=== PATIENT | female | born 1985 | race Caucasian/White ===

== ENCOUNTER 2019-02-19 20:50 | Emergency (ER) | payer OTHER ==
[2019-02-19] MEDS ORDERED: Glucagon,Human Recombinant 1 MG Vial IVPUSH ONE (21:05)
[2019-02-19] MEDS ORDERED: Metoclopramide 10 MG/2 ML SDV IVPUSH ONE (21:07)
[2019-02-19] MEDS ORDERED: fentaNYL 100 MCG/2 ML SDV IVPUSH ONE (21:07)
[2019-02-19] MEDS ORDERED: Sodium Chloride 0.9% 10 ML Syringe FLUSH PRN (21:07)
--- NOTE | 2019-02-19 21:14 | EDM.PDOC ---
ED HPI GENERAL MEDICAL PROBLEM - General Chief Complaint: ENT Problem Stated Complaint: STEAK STUCK IN THROAT Time Seen by Provider: 02/19/19 21:01 Source of Information: Reports: Patient, RN Notes Reviewed History Limitations: Reports: No Limitations - History of Present Illness INITIAL COMMENTS - FREE TEXT/NARRATIVE: Patient is a 33-year-old female who presents to the ED for evaluation of a food impaction bolus. The patient states that she has had a piece of steak stuck in her throat for roughly 30-45 minutes. She has been trying to drink water, however she is up and able to keep this down. She is just spitting up clear frothy saliva at this time. She notes that she has had prior issues with this in the past. She has had to have esophageal dilatation. She notes that she has not had this done and roughly 4 years however. She states that this food impaction bolus happens a couple times a year. Throat Pain Score (Numeric/FACES): 5 - Related Data Allergies Allergy/AdvReac Type Severity Reaction Status Date / Time amoxicillin Allergy Cannot Verified 02/19/19 20:59 Remember Home Meds: Home Meds Mirabegron [Myrbetriq] 1 tab PO DAILY 02/19/19 [History] Mometasone Furoate [Asmanex 220 MCG] 1 puff INH DAILY 02/19/19 [History] Montelukast [Singulair] 10 mg PO DAILY 02/19/19 [History] Past Medical History HEENT History: Reports: Other (See Below) Other HEENT History: esophagitis Respiratory History: Reports: Asthma Social & Family History - Tobacco Use Smoking Status *Q: Never Smoker - Caffeine Use Caffeine Use: Reports: Coffee, Tea - Recreational Drug Use Recreational Drug Use: No ED ROS ENT - Review of Systems Review Of Systems: See Below Constitutional: Reports: No Symptoms HEENT: Reports: Throat Pain (food impaction bolus, mid throat/chest discomfort) Respiratory: Reports: No Symptoms Cardiovascular: Reports: No Symptoms Endocrine: Reports: No Symptoms GI/Abdominal: Reports: Nausea : Reports: No Symptoms Musculoskeletal: Reports: No Symptoms Skin: Reports: No Symptoms Neurological: Reports: No Symptoms Psychiatric: Reports: No Symptoms Hematologic/Lymphatic: Reports: No Symptoms Immunologic: Reports: No Symptoms ED EXAM, ENT - Physical Exam Exam: See Below Exam Limited By: No Limitations General Appearance: Alert, WD/WN, Mild Distress (pt is calm at bedside, but demonstrates obvious discomfort with waves. She is producing a thick clear mucus into the emesis bag) Mouth/Throat: Normal Inspection, Normal Gums, Normal Lips, Normal Oropharynx, Normal Teeth Respiratory/Chest: No Respiratory Distress, Lungs Clear, Normal Breath Sounds, No Accessory Muscle Use, Chest Non-Tender Cardiovascular: Normal Peripheral Pulses, Regular Rate, Rhythm, No Murmur Neurological: Alert, Oriented, Normal Cognition, No Motor/Sensory Deficits Psychiatric: Normal Affect, Normal Mood Skin: Warm, Dry, Intact, Normal Color, No Rash Course - Vital Signs Last Recorded V/S: Last Vital Signs Temp 97.1 F 02/19/19 21:04 Pulse 75 02/19/19 21:04 Resp 20 02/19/19 21:04 BP 129/83 02/19/19 21:04 Pulse Ox 98 02/19/19 21:04 - Orders/Labs/Meds Orders: Active Orders 24 hr Category Date Time Status Peripheral IV Care [RC] . DIRECTED Care 02/19/19 21:07 Ordered Sodium Chloride 0.9% [Saline Flush] Med 02/19/19 21:07 Ordered 10 ml FLUSH ASDIRECTED PRN Peripheral IV Insertion Adult [OM.PC] Routine Oth 02/19/19 21:07 Ordered Medication Orders Sodium Chloride (Saline Flush) 10 ml FLUSH ASDIRECTED PRN PRN Reason: Keep Vein Open Last Admin: 02/19/19 21:17 Dose: 10 ml Meds: Medications Generic Name Dose Route Start Last Admin Trade Name Freq PRN Reason Stop Dose Admin Sodium Chloride 10 ml 02/19/19 21:07 02/19/19 21:17 Saline Flush FLUSH 10 ml ASDIRECTED PRN Administration Keep Vein Open Discontinued Medications Generic Name Dose Route Start Last Admin Trade Name Freq PRN Reason Stop Dose Admin Fentanyl 50 mcg 02/19/19 21:07 02/19/19 21:19 Sublimaze IVPUSH 02/19/19 21:08 50 mcg ONETIME ONE Administration Glucagon 1 mg 02/19/19 21:05 02/19/19 21:29 Glucagen IVPUSH 02/19/19 21:06 1 mg ONETIME ONE Administration Metoclopramide HCl 7.5 mg 02/19/19 21:07 02/19/19 21:19 Reglan IVPUSH 02/19/19 21:08 7.5 mg ONETIME ONE Administration - Re-Assessments/Exams Free Text/Narrative Re-Assessment/Exam: 02/19/19 21:12 Patient presents to the ED for the evaluation of a food impaction bolus. Have ordered 50 mg Benadryl, and 7.5 mg IV Reglan along with 1 mg of glucagon to be delivered roughly 10 minutes after the fentanyl and Reglan have been given. She will then be given a 7-up type soda to see if this doesn't help pass the food impaction. 02/19/19 21:42 Patient was reassessed at bedside, and states that the food impaction has resolved. She feels much better. We'll discharge her home at this time. She may wait until the effects of the Fentanyl have subsided or she can get a ride home. The fentanyl should only be in her system for a short amount of time. Departure - Departure Time of Disposition: 21:44 Disposition: Home, Self-Care 01 Condition: Fair Clinical Impression: Food impaction of esophagus Qualifiers: Encounter type: initial encounter Qualified Code(s): T18.128A - Food in esophagus causing other injury, initial encounter - Discharge Information *PRESCRIPTION DRUG MONITORING PROGRAM REVIEWED*: No *COPY OF PRESCRIPTION DRUG MONITORING REPORT IN PATIENT ALINA: No Referrals: PCP,Unknown [Primary Care Provider] - Forms: ED Department Discharge Additional Instructions: You have been evaluated in the ED for your food impaction. You have been given some medications to help the food impaction pass. These medications were successful in helping relieve the food impaction. Recommend that you seek care for an esophageal dilatation to provide you further relief from future food impactions. Please return to the ED if your symptoms should change or worsen. - My Orders Last 24 Hours: My Active Orders 02/19/19 21:07 Peripheral IV Care [RC] . DIRECTED Sodium Chloride 0.9% [Saline Flush] 10 ml FLUSH ASDIRECTED PRN Peripheral IV Insertion Adult [OM.PC] Routine - Assessment/Plan Last 24 Hours: My Active Orders 02/19/19 21:07 Peripheral IV Care [RC] . DIRECTED Sodium Chloride 0.9% [Saline Flush] 10 ml FLUSH ASDIRECTED PRN Peripheral IV Insertion Adult [OM.PC] Routine
== END 2019-02-19 21:55 | disposition home or self-care (01) ==
LOC: JD.ED 20:50
DX: T18.128A Food in esophagus causing other injury, initial encounter (principal); Z88.1 Allergy status to other antibiotic agents; X58.XXXA Exposure to other specified factors, initial encounter
CPT/HCPCS: 96374; 96375; 99283; J1610; J2765; J3010; 99284